=== PATIENT | male | born 1980 | race Two or more races ===

== ENCOUNTER 2017-12-30 13:33 | Emergency (ER) | payer MEDICAID ==
[~2017-12-30] VITALS: Ht 185.4 cm; Wt 63.2 kg
[2017-12-30 13:45] VITALS: BP 126/79
[2017-12-30] MEDS ORDERED: OXYcodone/APAP 10/325MG TABLET ONE (14:11)
[2017-12-30] MEDS ORDERED: KETOROLAC 30 MG/1 ML ONE (14:11)
[2017-12-30] MEDS ORDERED: KETOROLAC 60 MG/2 ML IM ONE (14:30)
[2017-12-30] MEDS ORDERED: OXYcodone/APAP 10/325MG TABLET PO ONE (14:30)
== END 2017-12-30 14:51 | disposition home or self-care (01) ==
LOC: ED 14:45
DX: M16.0 Bilateral primary osteoarthritis of hip (principal); B35.3 Tinea pedis
CPT/HCPCS: 99282

== ENCOUNTER 2018-01-01 16:49 | Emergency (ER) | payer MEDICAID ==
[~2018-01-01] VITALS: Ht 185.4 cm; Wt 61.7 kg
[2018-01-01 17:00] VITALS: BP 109/69
[2018-01-01] MEDS ORDERED: KETOROLAC 30 MG/1 ML ONE (18:00)
[2018-01-01] MEDS ORDERED: KETOROLAC 30 MG/1 ML IM ONE (19:00)
== END 2018-01-01 18:58 | disposition home or self-care (01) ==
LOC: ED 18:25
DX: S16.1XXA Strain of muscle, fascia and tendon at neck level, initial encounter (principal); S63.511A Sprain of carpal joint of right wrist, initial encounter; G89.29 Other chronic pain; M25.511 Pain in right shoulder; M19.90 Unspecified osteoarthritis, unspecified site; W18.39XA Other fall on same level, initial encounter; Y93.89 Activity, other specified; Y92.488 Other paved roadways as the place of occurrence of the external cause; Y99.8 Other external cause status
CPT/HCPCS: 29125; 72125; 73030; 73110; 73130; 96372; 99284; J1885

== ENCOUNTER 2018-01-07 17:54 | Emergency (ER) | payer MEDICAID ==
[~2018-01-07] VITALS: Ht 185.4 cm; Wt 60.0 kg
[2018-01-07 18:53] LABS: BASOPHILS # (AUTO) 0.06 x10^3/uL (0-0.1); BASOPHILS % (AUTO) 1 % (0-1); EOSINOPHILS # (AUTO) 0.09 x10^3/uL (0-0.4); EOSINOPHILS % (AUTO) 2 % (1-7); LYMPHOCYTES % (AUTO) 37 % (22-44); MD NO; MEAN CORPUSCULAR HEMOGLOBIN 34.2 pg (27.5-34.5); MEAN CORPUSCULAR HGB CONC 33.8 g/dL (33.2-36.2); MEAN CORPUSCULAR VOLUME 101.3 fL (81-97); MEAN PLATELET VOLUME 7.5 fL (7.4-10.4); MONOCYTES % (AUTO) 9 % (2-9); NEUTROPHILS # (AUTO) 2.75 x10^3/uL (1.8-6.8); NEUTROPHILS % (AUTO) 51 % (42-75); PLATELET COUNT 325 x10^3/uL (130-400); RED BLOOD COUNT 4.36 x10^6/uL (4.38-5.82); RED CELL DISTRIBUTION WIDTH 14.6 % (9.4-14.8)
[2018-01-07 19:02] LABS: ALBUMIN 3.4 g/dL (3.4-5.0); ANION GAP 10 mmol/L (5-15); CALCIUM 8.4 mg/dL (8.5-10.1); CHLORIDE 107 mmol/L (98-107); CREATININE 0.84 mg/dL (0.7-1.3)
[2018-01-07 19:03] VITALS: BP 109/63
[2018-01-07 19:06] LABS: TROPONIN I < 0.015 ng/mL (0.000-0.045)
== END 2018-01-07 19:59 | disposition home or self-care (01) ==
LOC: ED 19:54
DX: R55 Syncope and collapse (principal); R51 Headache
CPT/HCPCS: 36415; 70450; 80048; 82040; 82962; 84484; 85025; 93005; 99285